=== PATIENT | female | born 1985 | race Caucasian/White ===

== ENCOUNTER 2024-05-15 14:30 | Emergency (ER) | payer OTHER, SELFPAY ==
[2024-05-15 14:37] VITALS: BP 158/94; BMI 47.2
[2024-05-15 14:51] LABS: % Basophils 0.8 % (0-2); % Eosinophils 3.8 % (0-6); % Immature Granulocytes 0.4 % (0-0.5); % Lymphocytes 24.5 % (20.5-51.1); % Monocytes 5.1 % (1.7-9.3); % Neutrophils 65.4 % (42.2-75.2); Absolute Basophils 0.1 10^3/uL (0-0.2); Absolute Eosinophils 0.4 10^3/uL (0-0.7); Absolute Lymphocytes 2.3 10^3/uL (1.2-3.4); Absolute Monocytes 0.5 10^3/uL (0.1-0.6); Hematocrit 42.3 % (37.0-47.0); Hemoglobin 14.5 g/dL (12.0-16.0); Mean Corp Hgb Conc. 34.3 g/dL (33.0-37.0); Mean Corpuscular Hgb 28.5 pg (27.0-31.0); Mean Corpuscular Volume 83.1 fL (81.0-99.0); Nucleated Red Blood Cells % 0 %; Platelet Count 260 10^3/uL (130-400); Red Blood Cell Count 5.09 10^6/uL (4.20-5.40); Red Cell Dist. Width 12.7 % (11.5-14.5); White Blood Cell Count 9.2 10^3/uL (4.8-10.8)
[2024-05-15 15:01] LABS: HCG, Serum Qualitative Screen Negative
[2024-05-15 15:10] LABS: ALT (SGPT) 19 U/L (0-35); AST (SGOT) 25 U/L (14-36); Albumin 4.3 g/dl (3.5-5.0); Alkaline Phosphatase 67 U/L (38-126); Blood Urea Nitrogen 16 mg/dl (7-17); Calcium 9.5 mg/dl (8.4-10.2); Carbon Dioxide 23 mmol/L (22-30); Chloride 107 mmol/L (98-107); Estimated Creatinine Clearance > 125 ml/min; Glucose 88 mg/dl (70-99); Lipase 285 U/L (23-300); Sodium 137 mmol/L (135-145); Total Bilirubin 0.5 mg/dl (0.2-1.3); Total Protein 6.8 g/dl (6.3-8.2); eGFR > 60.00
[2024-05-15] MEDS: OMNIPAQUE 50 ML PO (17:08)
[2024-05-15 17:27] LABS: Urine Albumin Negative (Neg - Trace); Urine Bilirubin Negative (Negative); Urine Character Clear (Clear); Urine Color Yellow; Urine Glucose Negative (Negative); Urine Ketone Trace (Negative); Urine Leukocyte Negative (Negative); Urine Nitrite Negative (Negative); Urine Occult Blood 1+ (Negative); Urine Urobilinogen Negative (Neg - 1+)
[2024-05-15 17:55] LABS: Urine Bacteria Few (Negative); Urine Mucus Few; Urine Red Blood Cell 0-2 /HPF (0-2); Urine Squamous Cell 0-2 /LPF (Few); Urine White Cell 0-2 /HPF (0-5)
[2024-05-15 19:39] VITALS: BP 163/91
[2024-05-15 19:42] VITALS: BP 163/91
--- NOTE | 2024-05-15 21:45 | ED.GENMED ---
History of Present Illness
General
Chief Complaint: Abdominal Pain
Source: patient
Exam Limitations: none
Time Seen by Provider: 05/15/24 16:31
Nursing documentation reviewed up to this point in time: agreed with
History of Present Illness
History of Present Illness:
Patient to ED with complaint of RLQ abdominal pain. Symptoms started last week. Denies fever/chills. +nausea. No diarrhea. Advised by PCP to come to ED for eval. LMP current
Past History
Past History
ED Past Medical History: Other (Migraines, Aspergers, IBS,)
ED Past Surgical History: Other (N/A)
Social History
Tobacco: Non-smoker
Personal: Single
Living: with roommate
Review of Systems
Review of Systems
Allergies reviewed?: Yes
All Other Systems: ROS reviewed and negative except as documented in HPI and ROS
Constitutional: Reports no symptoms
EENT: Reports no symptoms
Respiratory: Reports no symptoms
Cardiac: Reports no symptoms
ABD/GI: Reports abdominal pain (RLQ)
: Reports no symptoms
Musculoskeletal: Reports no symptoms
Skin: Reports no symptoms
Neurological: Reports no symptoms
Psychiatric: Reports no symptoms
Phy Exam
General Physical Exam
General Presentation: well appearing and no apparent distress
General age: appears stated age
General Skin: warm and dry
General Habitus: normal
General Mental: alert
Cardiovascular Exam
Cardiovascular Exam: regular rate/rhythm and no edema
Pulmonary Exam
Pulmonary Exam: lungs clear and no respiratory distress
Gastrointestinal Exam
Gastrointestinal Exam: normal bowel sounds, soft, no organomegaly, non distended and no cva tenderness
Palpation: left upper quadrant: No tenderness, left lower quadrant: No tenderness, right upper quadrant: Mild tenderness and right lower quadrant: Moderate tenderness
Musculoskeletal Exam
Musculoskeletal Exam: full ROM and neuro vasc intact
Skin Exam
Skin Exam: normal color, warm/dry and no rash
Psychiatric Exam
Psychiatric Exam: normal mood/affect
Course
Orders/Labs/Results
Orders:
Orders
05/15/24 14:40
Test Result ONCE
05/15/24 14:44
Complete Blood Count/With Diff Urgent
Comprehensive Metabolic Panel Urgent
HCG, Serum Qualitative Screen Urgent
Comment: Notify provider if positive test present
Lipase Urgent
05/15/24 16:45
Iohexol [Omnipaque] See Protocol PO NOW STA
05/15/24 16:46
CT Abd/pel W Iv And Oral Contr Urgent
Comment:
Reason For Exam: RLQ pain
05/15/24 17:16
Iohexol [Omnipaque] 50 ml .ROUTE .STK-MED ONE
05/15/24 17:19
Urinalysis Reflex To Culture Urgent
Date Specimen was Collected: 05/15/24
Time Specimen was Collected: 17:12
Urine Microscopic Reflex Cult Urgent
Abnormal Lab Results
05/15/24
17:19
Urine Ketones Trace A
(Negative)
Ur Occult Blood Reflex 1+ A
(Negative)
Urine Bacteria (Reflex) Few A
(Negative)
05/15/24 14:44
05/15/24 14:44
Vital Signs
Initial and Last Documented VS:
Initial Vital Signs
Temp Pulse Resp BP Pulse Ox
99.7 F 64 16 158/94 98
05/15/24 14:37 05/15/24 14:37 05/15/24 14:37 05/15/24 14:37 05/15/24 14:37
Last Documented Vital Signs
Temp Pulse Resp BP Pulse Ox
99.0 F 64 16 163/91 98
05/15/24 19:42 05/15/24 19:42 05/15/24 14:37 05/15/24 19:42 05/15/24 19:47
*Radiology
Radiology exam reviewed: radiology read reviewed
*Pulse Oximetry
Patient hypoxic: no
*Critical Care Note
Total Time (30-74mins, 75-104mins- exclusive of procedures): Not Applicable
ED Attending Note
-
Portions of this chart may have been created with voice recognition software.� Occasional wrong word or��sound alike� substitutions may have occurred due to the inherent limitations of voice recognition software.
Discharge Plan
Departure
Patient Disposition: Home (Routine Discharge)
Date of Disposition: 05/15/24
Time of Disposition: 20:00
Patient with high blood pressure during this ER visit?: No
Condition: Good
Covid-19: Not Applicable
Discharge Problem:
Abdominal pain
Instructions: Abdominal Pain
Prescriptions:
No Action
ibuprofen 800 MG tablet
800 mg PO Q6HPRN PRN (Reason: for pain and swelling.) Qty: 30 0RF
hydrocodone-acetaminophen 5 MG/500 MG tablet
2 tablets PO Q4HPRN PRN (Reason: for severe pain.) Qty: 10 0RF
Rx Instructions:
Take 1-2 tablets every 4-6 hours as needed for pain.
Referrals:
Pat Butt CRNP [Family Provider] - Tomorrow
Activity Restrictions/Additional Instructions:
Return to the emergency department immediately for any changes in/worsening of your symptoms
Interventions
Interventions:
*Risk Screen - Suicide Last Done: 05/15/24 14:37
*General Assessment Last Done: 05/15/24 20:13
*Neglect/Abuse Screening Last Done: 05/15/24 14:37
ED- Fall Risk Assessment Last Done: 05/15/24 14:37
*ED COVID-19 Vaccine History Last Done: 05/15/24 20:13
*Nursing Disposition Last Done: 05/15/24 20:13
[facility]Pwwx[facility]-Rkdwronkrs Assessment Last Done: 05/15/24 19:36
Discharge Date and Time
Discharge Date/Time: 05/15/24 20:14
Print Language: [place]
== END 2024-05-15 20:14 | disposition home or self-care (01) ==
LOC: EMR 14:30
PROVIDERS: Nurse Practitioner; EMERGENCY PHYSICIAN Student in an Organized Health Care Education/Training Program; FAMILY PHYSICIAN Nurse Practitioner Family
DX: R10.31 Right lower quadrant pain (principal)
CPT/HCPCS: 99285; 74177; 80053; 81003; 81015; 83690; 84703; 85025; Q9967

== ENCOUNTER → 2024-12-01 07:32 | Outpatient (REF) | payer OTHER, SELFPAY ==
[2024-12-01 10:10] LABS: % Basophils 0.8 % (0-2); % Eosinophils 5.2 % (0-6); % Immature Granulocytes 0.3 % (0-0.5); % Lymphocytes 25.3 % (20.5-51.1); % Monocytes 6.8 % (1.7-9.3); % Neutrophils 61.6 % (42.2-75.2); Absolute Basophils 0.1 10^3/uL (0-0.2); Absolute Eosinophils 0.4 10^3/uL (0-0.7); Absolute Lymphocytes 1.9 10^3/uL (1.2-3.4); Absolute Monocytes 0.5 10^3/uL (0.1-0.6); Absolute Neutrophils 4.5 10^3/uL (1.4-6.5); Hematocrit 45.7 % (37.0-47.0); Hemoglobin 15.5 g/dL (12.0-16.0); Mean Corp Hgb Conc. 33.9 g/dL (33.0-37.0); Mean Corpuscular Hgb 29.2 pg (27.0-31.0); Mean Corpuscular Volume 86.1 fL (81.0-99.0); Mean Platelet Volume 10.4 fL (7.4-10.4); Nucleated Red Blood Cells % 0 %; Platelet Count 224 10^3/uL (130-400); Red Blood Cell Count 5.31 10^6/uL (4.20-5.40); Red Cell Dist. Width 12.7 % (11.5-14.5); White Blood Cell Count 7.4 10^3/uL (4.8-10.8)
[2024-12-01 10:34] LABS: Glycohemoglobin (HgbA1c) 5.3 % (4.0-5.6)
[2024-12-01 11:05] LABS: ALT (SGPT) 17 U/L (0-35); AST (SGOT) 20 U/L (14-36); Albumin 4.1 g/dl (3.5-5.0); Alkaline Phosphatase 61 U/L (38-126); Blood Urea Nitrogen 13 mg/dl (7-17); Calcium 9.3 mg/dl (8.4-10.2); Carbon Dioxide 23 mmol/L (22-30); Chloride 107 mmol/L (98-107); Glucose 97 mg/dl (70-99); Potassium 4.3 mmol/L (3.5-5.1); Sodium 138 mmol/L (135-145); Total Bilirubin 0.8 mg/dl (0.2-1.3); Total Protein 6.6 g/dl (6.3-8.2); eGFR > 60.00
[2024-12-01 11:25] LABS: TSH 2.16 uIU/ml (0.47-4.68)
[2024-12-01 19:29] LABS: Hepatitis C Antibody Negative (Negative)
== END ==
LOC: HWRAD 07:32
PROVIDERS: ATTENDING PHYSICIAN Nurse Practitioner Family
DX: K76.0 Fatty (change of) liver, not elsewhere classified (principal); L74.512 Primary focal hyperhidrosis, palms; L74.513 Primary focal hyperhidrosis, soles; Z68.42 Body mass index [BMI] 45.0-49.9, adult; Z11.59 Encounter for screening for other viral diseases
CPT/HCPCS: 36415; 76700; 80053; 83036; 84439; 84443; 85025; 86803